=== PATIENT | male | born 1945 | race Caucasian/White ===

== ENCOUNTER 2016-12-27 16:06 | Day surgery (SDC) | payer MEDICARE ==
[2016-12-27] MEDS ORDERED: NALOXONE HCL INJ/PF 0.4 MG/1 ML SDV ONE (17:12)
[2016-12-27] MEDS ORDERED: FENTANYL CITRATE INJ/PF 100 MCG/2 ML AMPUL ONE (17:13)
[2016-12-27] MEDS ORDERED: EPINEPHRINE INJ 1 MG/10 ML DISP.SYRIN ONE (17:14)
[2016-12-27] MEDS ORDERED: GLUCAGON,HUMAN RECOMB 1 MG INJ ONE (17:14)
[2016-12-27] MEDS ORDERED: FLUMAZENIL INJ 0.5 MG/5 ML VIAL ONE (17:14)
[2016-12-27] MEDS: MIDAZOLAM 2 MG/2 ML INJ ONE ×2 (17:50→17:56)
--- NOTE | 2016-12-27 18:36 | Operative Report ---
Operative Report DATE OF SURGERY: 12/27/16 Operative Report: Pre-op diagnosis: History of cirrhosis and esophageal varices Post-op diagnosis: Small esophageal varices and gastritis Surgery: Esophagogastroduodenoscopy with biopsy and variceal banding Medications: Versed 4mg Fentanyl 75mcg IV push Tissue removed: Antral biopsy for pathology Procedure: After informed consent obtained from patient, the throat was sprayed with Hurricane and conscious sedation was achieved. The upper endoscope was inserted into the esophagus under direct vision and advanced into the stomach. The duodenum was entered and examined to the second part. Endoscope was then slowly pulled out of the patient as the mucosa was examined into details. Patient tolerated procedure well. Findings Esophagus: 2 small, short varices were noted in the distal esophagus with areas of scarring. 3 rubber bands were applied Antrum: There was a nodular areas of erythema with erosions. Body: Evidence for portal gastropathy Fundus: Normal Duodenum first part: Normal Duodenum second part: Normal Plan: Await pathology and start omeprazole. Continue beta-jazmzine and repeat EGD in 1 year OPERATION: .
[2016-12-27 19:05] VITALS: BP 125/61
== END 2016-12-27 19:10 | disposition home or self-care (01) ==
LOC: END 16:06
PROVIDERS: ATTEND Internal Medicine Gastroenterology
PROC: 0DB68ZX Excision of Stomach, Via Natural or Artificial Opening Endoscopic, Diagnostic (ICD-10-PCS; principal; 2016-12-27 16:30)
PROC: 06L38CZ Occlusion of Esophageal Vein with Extraluminal Device, Via Natural or Artificial Opening Endoscopic (ICD-10-PCS; 2016-12-27 16:30)
DX: I85.00 Esophageal varices without bleeding (principal); K74.69 Other cirrhosis of liver; R18.8 Other ascites; K31.9 Disease of stomach and duodenum, unspecified; K76.6 Portal hypertension; K21.9 Gastro-esophageal reflux disease without esophagitis; E11.9 Type 2 diabetes mellitus without complications; I10 Essential (primary) hypertension; E78.00 Pure hypercholesterolemia, unspecified; K76.0 Fatty (change of) liver, not elsewhere classified; E66.9 Obesity, unspecified; Z79.4 Long term (current) use of insulin; Z79.84 Long term (current) use of oral hypoglycemic drugs; Z68.35 Body mass index [BMI] 35.0-35.9, adult; Z79.899 Other long term (current) drug therapy
CPT/HCPCS: 43239; 43244; 82962; 88342 ×2; 88305 ×2; J2250; J0171; J3010; J1610; J2310; J3490

== ENCOUNTER 2017-07-26 09:01 | Day surgery (SDC) | payer MEDICARE ==
[2017-07-26 09:37] LABS: HEMATOCRIT 35.2 % (37.9-51.0); HEMOGLOBIN 11.5 g/dL (13.5-17.0); MEAN CORPUSCULAR HEMOGLOBIN 27.8 pg (27.0-33.4); MEAN CORPUSCULAR HGB CONC 32.6 g/dL (32.0-36.0); MEAN CORPUSCULAR VOLUME 85 fl (80-97); PLATELET COUNT 184 10^3/uL (150-450); RED BLOOD COUNT 4.13 10^6/uL (4.35-5.55); RED CELL DISTRIBUTION WIDTH 16.8 % (11.5-14.0); WHITE BLOOD COUNT 5.3 10^3/uL (4.0-10.5)
[2017-07-26 09:56] VITALS: BP 120/61
[2017-07-26 09:56] LABS: BLOOD UREA NITROGEN 24 mg/dL (7-20)
[2017-07-26 10:04] LABS: INTERNATIONAL RATION (INR) 1.14; PROTHROMBIN TIME 15.2 SEC (11.4-15.4)
[2017-07-26 10:05] LABS: PARTIAL THROMBOPLASTIN TIME 38.4 SEC (23.5-35.8)
--- NOTE | 2017-07-26 14:37 | RADIOLOGY REPORT (SQ) ---
EXAM DESCRIPTION: CT ABDOMEN NO ORAL OR IV COMPLETED DATE/TIME: 07/26/2017 12:21 pm REASON FOR STUDY: UNSPECIFIED CIRRHOSIS OF LIVER K74.60 UNSPECIFIED CIRRHOSIS OF LIVER R93.2 ABNOR MAL FINDINGS ON DX IMAGING OF LIVER AND BILIARY T COMPARISON: MRI abdomen 07/14/2017, outside study TECHNIQUE: CT scan of the abdomen performed without intravenous contrast and without oral contrast. Images reviewed with lung, soft tissue, and bone windows. Reconstructed coronal and sagittal MPR im ages reviewed. All images stored on PACS. All CT scanners at this facility use dose modulation, iterative reconstruction, and/or weight based d osing when appropriate to reduce radiation dose to as low as reasonably achievable (ALARA). [facility]: Dose Right [facility]: CareDose [facility]: Dose Right [facility]: Teradose 4D [facility]: AudiencePoint RADIATION DOSE: CT Rad equipment meets quality standard of care and radiation dose reduction techniq ues were employed. CTDIvol: 20.4 mGy. DLP: 627 mGy-cm.mGy. LIMITATIONS: None. FINDINGS: This exam was performed in preparation for possible right lobe liver biopsy. Outside MRI exam demonstrated an enhancing 2 cm nodule in the inferior most aspect right lobe liver, worrisome fo r a small hepatocellular carcinoma in the setting of cirrhosis. Today's CT in preparation for biopsy demonstrates a moderate amount of ascites in the upper abdomen, new compared to MRI 07/14/2017. On today's CT, the 2 cm nodule in the inferior most right lobe liver is not well seen. Biopsy was n ot performed. Dr. Ruelas was notified of this. There are stones in the gallbladder. Nodular contour of the liver from cirrhosis. Splenomegaly at e dge of the field of view. Right gynecomastia. IMPRESSION: Interval development of ascites in the right abdomen 07/14/2017. Nodular liver from cirrhosis. 2 cm nodule seen on MRI 07/14/2017 was not well-visualized by noncontrast CT. No biopsy performed. Stones in the gallbladder. TECHNICAL DOCUMENTATION: JOB ID: [id number] Quality ID # [id number]: Final reports with documentation of one or more dose reduction techniques (e.g., Au tomated exposure control, adjustment of the mA and/or kV according to patient size, use of iterative reconstruction technique) 2010 [employer] All Rights Reserved Reading location - IP/workstation name: [facility]
== END 2017-07-26 11:46 | disposition home or self-care (01) ==
LOC: RAD 09:01
PROVIDERS: ATTEND Internal Medicine Hematology & Oncology
DX: K74.60 Unspecified cirrhosis of liver (principal); R93.2 Abnormal findings on diagnostic imaging of liver and biliary tract; Z53.9 Procedure and treatment not carried out, unspecified reason; K75.81 Nonalcoholic steatohepatitis (NASH); I85.00 Esophageal varices without bleeding; K76.6 Portal hypertension; E11.9 Type 2 diabetes mellitus without complications
CPT/HCPCS: 36415; 74150; 82565; 82962; 84520; 85027; 85610; 85730

== ENCOUNTER 2017-09-24 10:04 | Emergency (ER) | payer OTHER, MEDICARE ==
--- NOTE | 2017-09-24 10:49 | ER Document Report ---
ED Medical Screen (RME) - General Chief Complaint: Post Surgical Pain Stated Complaint: POST SURGICAL COMPLICATIONS Time Seen by Provider: 09/24/17 10:46 TRAVEL OUTSIDE OF THE [place] IN LAST 30 DAYS: No - HPI Notes: 09/24/17 10:49 History liver cancer with a first paracentesis form [facility] patient is currently leaking at the paracentesis site was told to come in to the ER for further evaluation. Patient otherwise has no other complaints. - Related Data Allergies/Adverse Reactions: No Known Allergies Allergy (Verified 09/24/17 10:05) Past Medical History - Social History Chew tobacco use (# tins/day): No Frequency of alcohol use: None Drug Abuse: None - Past Medical History Cardiac Medical History: Reports: Hx Coronary Artery Disease - HIGH CHOLESTEROL , Hx Hypercholesterolemia, Hx Hypertension Denies: Hx Heart Attack Pulmonary Medical History: Denies: Hx Asthma, Hx Bronchitis, Hx COPD, Hx Pneumonia, Hx Tuberculosis Neurological Medical History: Denies: Hx Cerebrovascular Accident, Hx Seizures Endocrine Medical History: Reports: Hx Diabetes Mellitus Type 2 Renal/ Medical History: Denies: Hx Peritoneal Dialysis GI Medical History: Reports: Hx Gastroesophageal Reflux Disease Musculoskeltal Medical History: Denies Hx Arthritis Psychiatric Medical History: Denies: Hx Depression Past Surgical History: Reports: Hx Orthopedic Surgery - bilat knees x3, numerous back surgeries. - Immunizations Hx Diphtheria, Pertussis, Tetanus Vaccination: Yes - 2005 History of Influenza Vaccine for 12/2016 - 05/2017 Season: Yes Influenza Administration Date for 12/2016 - 05/2017 Season: 12/04/16 Review of Systems - Review of Systems Constitutional: Other - Leaking paracentesis site Physical Exam - Vital signs Vitals: Temp Pulse Resp BP Pulse Ox 98.1 F 67 18 126/67 H 100 09/24/17 10:22 09/24/17 10:22 09/24/17 10:22 09/24/17 10:22 09/24/17 10:22 - Abdominal Notes: Leaking paracentesis site on the right side of the abdomen Course - Re-evaluation Re-evalutation: 09/24/17 10:[address] patient in the back more likely only will need a strip with Dermabond or a single pursestring suture to close up to the leaking paracentesis site. - Vital Signs Vital signs: Temp Pulse Resp BP Pulse Ox 98.1 F 67 18 126/67 H 100 09/24/17 10:22 09/24/17 10:22 09/24/17 10:22 09/24/17 10:22 09/24/17 10:22 Doctor's Discharge - Discharge Referrals: JEAN MARTIN PA-C [Primary Care Provider] - Follow up as needed
[2017-09-24] MEDS: LIDOCAINE 1% INJ-PF (10 MG/ML) 30 ML SDV INJ ONE (11:50)
--- NOTE | 2017-09-24 15:51 | ER Document Report ---
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 He had his first dose of chemotherapy at [facility]. He also had over 6 L of ascitic fluid removed by paracentesis with a couple of holes placed in the right lower quadrant area of the abdomen. He has noted that it is continuing to continuously drain a small amount from these holes patient has not had any fever or chills. No nausea or vomiting. No abdominal pain or complaints. TRAVEL OUTSIDE OF THE [place] IN LAST 30 DAYS: No - Related Data Allergies/Adverse Reactions: No Known Allergies Allergy (Verified 09/24/17 10:05) Past Medical History - Social History Smoking Status: Never Smoker Chew tobacco use (# tins/day): No Frequency of alcohol use: None Drug Abuse: None Family History: Reviewed & Not Pertinent Patient has suicidal ideation: No Patient has homicidal ideation: No - Past Medical History Cardiac Medical History: Reports: Hx Coronary Artery Disease - HIGH CHOLESTEROL , Hx Hypercholesterolemia, Hx Hypertension Denies: Hx Heart Attack Endocrine Medical History: Reports: Hx Diabetes Mellitus Type 2 Malignancy Medical History: Reports Hx Liver Cancer GI Medical History: Reports: Hx Gastroesophageal Reflux Disease Past Surgical History: Reports: Hx Orthopedic Surgery - bilat knees x3, numerous back surgeries. - Immunizations Hx Diphtheria, Pertussis, Tetanus Vaccination: Yes - 2005 Hx Pneumococcal Vaccination: 03/06/12 Review of Systems - Review of Systems Notes: REVIEW OF SYSTEMS: CONSTITUTIONAL : Denies fever. EENT: Denies eye, ear, nose or mouth or throat pain or other symptoms. CARDIOVASCULAR: Denies chest pain. RESPIRATORY: Denies cough, chest congestion, or shortness of breath. GASTROINTESTINAL: Some abdominal discomfort. No nausea or vomiting. GENITOURINARY: Denies difficulty or painful urinating, urinary frequency, blood in urine. MUSCULOSKELETAL: Denies back or neck pain. Denies joint pain or swelling. SKIN: Denies rash or skin lesions. NEUROLOGICAL: Denies LOC or altered mental status. Denies headache. Denies sensory loss or motor deficits. ALL OTHER SYSTEMS REVIEWED AND NEGATIVE. Physical Exam - Vital signs Vitals: Temp Pulse Resp BP Pulse Ox 98.1 F 67 18 126/67 H 100 09/24/17 10:22 09/24/17 10:22 09/24/17 10:22 09/24/17 10:22 09/24/17 10:22 Interpretation: Normal - Notes Notes: PHYSICAL EXAMINATION: GENERAL: Well-appearing, in no acute distress. HEAD: Atraumatic, normocephalic. EYES: Pupils equal round and reactive to light, extraocular movements intact. ENT: oropharynx clear without exudates. Moist mucous membranes. NECK: Normal range of motion, supple. LUNGS: Breath sounds clear and equal bilaterally. HEART: Regular rate and rhythm without murmurs. ABDOMEN: Soft, nontender. No guarding or rebound. No masses. 2 very small little holes noted in the right lower quadrant of the abdomen. 1 of them clearly is slowly, but steadily dripping clear looking ascitic fluid from the right lower quadrant. A more cephalad and centrally located is a second draining site which is only intermittently draining and is likely due to the fact that it is above the level of the lower site is draining more significantly. Abdomen is otherwise soft and nontender. BACK: No tenderness throughout entire back. EXTREMITIES: Normal range of motion without pain. NEUROLOGICAL: Normal speech, normal gait. Normal sensory, motor, and reflex exams. Awake, alert, and oriented x3. Cranial nerves normal. PSYCH: Normal mood, normal affect. SKIN: Warm, dry, no rashes. Course - Re-evaluation Re-evalutation: 09/24/17 19:46 I attempted to stop the leaking by applying Dermabond but without any success. After that, I put a couple of crisscross sutures of 3-0 Prolene. There seem to be some decrease in the amount of drainage, but still a small amount coming from the lower wound. I put another couple of sutures and repeated that again later followed by application of Dermabond to the sutured area. I also applied Dermabond to the more superior less significant drainage spot. The primary site with the sutures still seem to have a very small passage of fluid, although it seems to be less, to me, than when he came in. I do not feel that it is important to stop this lesion completely and it may stop on its own spontaneously. I am going to give it a rest until tomorrow and patient will attempt to contact a local surgeon about ongoing future drainage and leaking from the drainage sites. - Vital Signs Vital signs: Temp Pulse Resp BP Pulse Ox 97.9 F 69 16 127/57 H 100 09/24/17 16:02 09/24/17 16:02 09/24/17 16:02 09/24/17 16:02 09/24/17 16:02 Discharge - Discharge Clinical Impression: Leaking peritoneal fluid Condition: Stable Disposition: HOME, SELF-CARE Additional Instructions: You have leaking of peritoneal fluid from your paracentesis site. Sutures have been placed and Dermabond has been applied with some improvement in the leakage although there does remain some very small amount. FOLLOW-UP CARE: Your sutures should be removed in 7 days. To facilitate a timely removal of your sutures, you may return to the Emergency Department at [facility]. You do not need to call for an appointment, but the best time to come in for suture removal is early in the morning. If you have been referred to another physician for follow-up care, call that physicians office for an appointment as you were instructed. If you experience a significant change in your laceration, or if you are concerned there may be an infection (swelling, redness, drainage, increasing tenderness, red streaks, tender lumps in the armpit or groin above the laceration, or fever) , return to the Emergency Department immediately re-evaluation. I suggest you call Dr. Sanders tomorrow for follow-up. Referrals: BHARAT SANDERS MD [ACTIVE STAFF] - Follow up as needed
[2017-09-24 16:03] VITALS: BP 127/57
== END 2017-09-24 16:05 | disposition home or self-care (01) ==
LOC: ER 10:04
DX: Z48.89 Encounter for other specified surgical aftercare (principal); C22.8 Malignant neoplasm of liver, primary, unspecified as to type; I25.10 Atherosclerotic heart disease of native coronary artery without angina pectoris; I10 Essential (primary) hypertension; E11.9 Type 2 diabetes mellitus without complications
CPT/HCPCS: 99283; 12001; J3490